=== PATIENT | female | born 1950 | race Caucasian/White ===

== ENCOUNTER 2016-12-03 12:17 | Emergency (ER) | END 2016-12-03 15:15 | disposition home or self-care (01) | DX: L02.01 Cutaneous abscess of face (principal); I10 Essential (primary) hypertension; E11.9 Type 2 diabetes mellitus without complications ==

== ENCOUNTER 2019-01-24 22:27 | Inpatient (IN) | payer OTHER, MEDICAID ==
[~2019-01-24] VITALS: Ht 165.1 cm; Wt 112.3 kg
[~2019-01-24 22:27] MED LIST: AMLO-145 PO; AMLO-147 PO; ATOR40TA68 PO; CEPH500C PO; CLIN300C10 PO; CLON-379 PO; DICL50TA2 PO; FURO-109 PO; FURO20TA3 PO; GABA300C16 PO; IRON1TAB78 PO; LOSA100T15 PO; METF850T13 PO; METH-493 PO; METO-448 PO; MONT10TA24 PO; OMEP40CA6 PO; PANT40TA4 PO; POTA8CAP PO; SOTA80TA18 PO; WARF4TAB64 PO
[2019-01-25] MEDS ORDERED: BISACODYL (EC) 5 MG TAB PO PRN (02:00)
[2019-01-25] MEDS ORDERED: ONDANSETRON 4 MG INJ IV PRN (02:00)
[2019-01-25] MEDS ORDERED: FUROSEMIDE 20 MG INJ IV ONE (02:00)
[2019-01-25] MEDS ORDERED: NACL 0.9% 3 ML SYG IV SCH (02:00)
[2019-01-25] MEDS ORDERED: DOCUSATE SODIUM 100 MG CAP PO PRN (02:00)
[2019-01-25 04:30] VITALS: BP 135/71; PULSE 75; RESP 21
[2019-01-25] MEDS: ACETAMINOPHEN 325 MG TAB PO PRN ×2 (06:13→21:25)
[2019-01-25] MEDS: FUROSEMIDE 20 MG INJ IV SCH ×2 (06:14→17:26)
[2019-01-25 06:45] VITALS: Ht 165.1 cm; Wt 112.3 kg
[2019-01-25 08:06] VITALS: BP 160/74; PULSE 73; RESP 18
[2019-01-25] MEDS ORDERED: NON-FORMULARY/PATIENT OWN MED (Omeprazole* 40 MG) XX SCH (09:00)
[2019-01-25] MEDS ORDERED: SOTALOL 80 MG TAB PO SCH (09:00)
[2019-01-25] MEDS ORDERED: AMLODIPINE 10 MG TAB PO SCH (09:00)
[2019-01-25] MEDS: METHIMAZOLE 5 MG TAB PO SCH (09:44)
[2019-01-25] MEDS: CEPHALEXIN 500 MG CAP PO SCH ×2 (09:44→21:19)
[2019-01-25] MEDS: GABAPENTIN 300 MG CAP PO SCH ×3 (09:44→21:19)
[2019-01-25] MEDS: PANTOPRAZOLE (EC) 40 MG TAB PO SCH (09:45)
[2019-01-25 11:30] VITALS: BP 144/72; PULSE 66; RESP 18
[2019-01-25] MEDS ORDERED: WARFARIN 2 MG TAB PO SCH (17:00)
[2019-01-25] MEDS: WARFARIN 2 MG TAB PO SCH (17:27)
[2019-01-25] MEDS ORDERED: AL HYDROX/MG HYDROX/SIMETH 30 ML CUP PO PRN (19:00)
[2019-01-25] MEDS ORDERED: traMADol 50 MG TAB PO PRN (19:00)
[2019-01-25] MEDS ORDERED: NITROGLYCERIN (SL) 0.4 MG TAB SL PRN (19:00)
[2019-01-25 20:41] VITALS: BP 131/69; PULSE 67; RESP 18
[2019-01-25] MEDS: ATORVASTATIN 40 MG TAB PO SCH (21:19)
[2019-01-25] MEDS: MONTELUKAST 10 MG TAB PO SCH (21:19)
[2019-01-25] MEDS: METOPROLOL 25 MG TAB PO SCH (21:21)
[2019-01-25] MEDS ORDERED: LIDOCAINE/MYLANTA 40 ML BTL PO ONE (22:55)
[2019-01-26 00:24] VITALS: BP 149/83; PULSE 70; RESP 18
[2019-01-26 04:35] VITALS: BP 149/90; PULSE 70; RESP 18
[2019-01-26] MEDS: FUROSEMIDE 20 MG INJ IV SCH ×2 (05:56→17:02)
[2019-01-26] MEDS: ACETAMINOPHEN 325 MG TAB PO PRN (06:02)
[2019-01-26 07:48] VITALS: BP 151/84; PULSE 75; RESP 20
[2019-01-26] MEDS: PANTOPRAZOLE (EC) 40 MG TAB PO SCH (08:32)
[2019-01-26] MEDS: GABAPENTIN 300 MG CAP PO SCH ×3 (08:32→22:11)
[2019-01-26] MEDS: METHIMAZOLE 5 MG TAB PO SCH (08:32)
[2019-01-26] MEDS: AMLODIPINE 5 MG TAB PO SCH (08:33)
[2019-01-26] MEDS: CEPHALEXIN 500 MG CAP PO SCH ×2 (08:33→22:11)
[2019-01-26] MEDS: METOPROLOL 25 MG TAB PO SCH ×2 (08:33→22:12)
[2019-01-26 12:03] VITALS: BP 130/68; PULSE 92; RESP 19
[2019-01-26] MEDS: LOSARTAN 50 MG TAB PO SCH (12:24)
[2019-01-26] MEDS ORDERED: POTASSIUM CHLORIDE 20 MEQ POWDER FOR ORAL SOLN PO ONE (15:00)
[2019-01-26] MEDS ORDERED: MAGNESIUM SULFATE 4 GM/100 ML 100 ML IVPB ONE (15:00)
[2019-01-26 16:07] VITALS: BP 132/71; PULSE 77; RESP 18
[2019-01-26] MEDS: WARFARIN 2 MG TAB PO SCH (16:16)
[2019-01-26 20:52] VITALS: BP 147/75; PULSE 83; RESP 18
[2019-01-26] MEDS: MONTELUKAST 10 MG TAB PO SCH (22:11)
[2019-01-26] MEDS: ATORVASTATIN 40 MG TAB PO SCH (22:11)
[2019-01-27 00:34] VITALS: BP 154/89; PULSE 97; RESP 18
[2019-01-27] MEDS: AL HYDROX/MG HYDROX/SIMETH 30 ML CUP PO PRN ×3 (00:41→10:54)
[2019-01-27] MEDS: ACETAMINOPHEN 325 MG TAB PO PRN (04:26)
[2019-01-27 04:50] VITALS: BP 157/95; PULSE 82; RESP 20
[2019-01-27] MEDS: FUROSEMIDE 20 MG INJ IV SCH ×2 (06:27→17:10)
[2019-01-27 07:36] VITALS: BP 143/84; PULSE 80; RESP 18
[2019-01-27] MEDS: GABAPENTIN 300 MG CAP PO SCH ×2 (08:52→15:29)
[2019-01-27] MEDS: PANTOPRAZOLE (EC) 40 MG TAB PO SCH (08:52)
[2019-01-27] MEDS: METHIMAZOLE 5 MG TAB PO SCH (08:52)
[2019-01-27] MEDS: LOSARTAN 50 MG TAB PO SCH (08:52)
[2019-01-27] MEDS: AMLODIPINE 5 MG TAB PO SCH (08:52)
[2019-01-27] MEDS: METOPROLOL 25 MG TAB PO SCH (08:53)
[2019-01-27] MEDS: CEPHALEXIN 500 MG CAP PO SCH (08:53)
[2019-01-27 11:51] VITALS: BP 126/72; PULSE 73; RESP 18
[2019-01-27 15:43] VITALS: BP 134/76; PULSE 81; RESP 20
[2019-01-27] MEDS: WARFARIN 2 MG TAB PO SCH (16:47)
[2019-01-27] MEDS ORDERED: AMLODIPINE 5 MG TAB PO SCH (21:00)
== END 2019-01-27 18:00 | disposition home or self-care (01) | DRG 292 ==
LOC: E/R 22:27 → 6WM 01-25 01:36 → OBSVTOIN 01-27 09:14
PROVIDERS: ADMIT Family Medicine; ATTEND Family Medicine
DX: I11.0 Hypertensive heart disease with heart failure (principal); N17.9 Acute kidney failure, unspecified; Z68.41 Body mass index [BMI] 40.0-44.9, adult; I50.43 Acute on chronic combined systolic (congestive) and diastolic (congestive) heart failure; E05.90 Thyrotoxicosis, unspecified without thyrotoxic crisis or storm; Z79.01 Long term (current) use of anticoagulants; E11.9 Type 2 diabetes mellitus without complications; K21.9 Gastro-esophageal reflux disease without esophagitis; I48.2 Chronic atrial fibrillation; I25.10 Atherosclerotic heart disease of native coronary artery without angina pectoris; Z95.5 Presence of coronary angioplasty implant and graft; E78.5 Hyperlipidemia, unspecified; E66.01 Morbid (severe) obesity due to excess calories; I27.20 Pulmonary hypertension, unspecified
CPT/HCPCS: 36415; 71045; 80048; 80061; 81001; 82270; 83036; 83735; 83880; 84439; 84443; 84481; 84484; 85025; 85610; 85730; 93005; 93306; G0378; J1940